=== PATIENT | male | born 2000 | race Two or more races ===

== ENCOUNTER 2021-06-02 16:12 | Outpatient (CLI) | payer OTHER | END 2021-06-02 16:57 | disposition home or self-care (01) | LOC: EDBD 16:12 → LAB 16:12 | PROVIDERS: ATTEND Internal Medicine Endocrinology, Diabetes & Metabolism | DX: Z20.828 Contact with and (suspected) exposure to other viral communicable diseases (principal) ==

== ENCOUNTER 2021-07-07 15:38 | Outpatient (CLI) | payer OTHER | END 2021-07-07 15:39 | disposition home or self-care (01) | LOC: EDBD 15:38 → LAB 15:38 | PROVIDERS: ATTEND Internal Medicine Endocrinology, Diabetes & Metabolism | DX: Z20.828 Contact with and (suspected) exposure to other viral communicable diseases (principal) ==

== ENCOUNTER 2021-07-26 06:19 | Outpatient (CLI) | payer OTHER | END 2021-07-26 09:05 | disposition home or self-care (01) | LOC: LAB 06:19 | PROVIDERS: ATTEND Internal Medicine Endocrinology, Diabetes & Metabolism | DX: Z20.828 Contact with and (suspected) exposure to other viral communicable diseases (principal) ==